=== PATIENT | male | born 1930 | race Caucasian/White ===

== ENCOUNTER 2017-12-04 11:16 | Emergency (ER) | payer BC ==
--- NOTE | 2017-12-04 11:41 | Emergency Department Record ---
History of Present Illness - General Chief complaint: Male Urogenital Problem Stated complaint: UTI Time Seen by Provider: 12/04/17 11:21 Source: Patient, Family Mode of Arrival: Ambulatory Limitations: No limitations - History of Present Illness Initial comments: 87 yo male presents with his son with concerns about urinary tract infection. He has had a suprapubic catheter for over a year. Over the last 3-4 days he has felt a little tired and run down. His urine is stronger in odor and darker. No fevers or chills. No pain. No abdominal pain. No retention. No confusion. He is at his baseline. They state the symptoms are very similar to when his suprapub cath causes and infection. It does get changed on a regular bases with his doctor and visiting physicians. MD Complaint: Dysuria -: Days(s) (4) Radiation: None Severity: Mild Quality: Other (No pain) Consistency: Constant Improves with: None Worsens with: None Indwelling catheter - Related Data Previous Rx's Medication Instructions Recorded Hydrocodone/Acetaminophen [[place] 1 each PO QID #15 tablet 12/09/15 5-325 Tablet] Nitrofurantoin Monohyd/M-Cryst 100 mg PO BID #20 capsule 12/04/17 [Macrobid 100 mg Capsule] Allergies Allergy/AdvReac Type Severity Reaction Status Date / Time meloxicam [From Mobic] AdvReac SHORTNESS Verified 12/04/17 12:25 OF BREATH sulfamethoxazole AdvReac hallucinati Verified 12/04/17 12:25 [From Bactrim] ons trimethoprim [From Bactrim] AdvReac hallucinati Verified 12/04/17 12:25 ons Travel Screening - Travel/Exposure Within Last 30 Days Have you traveled within the last 30 days?: No Review of Systems Constitutional: Reports: Malaise, Weakness. Denies: Chills, Fever Eyes: Denies: Eye discharge, Photophobia ENT: Denies: Congestion, Throat pain Respiratory: Denies: Cough, Dyspnea Cardiovascular: Denies: Chest pain, Palpitations, Syncope Endocrine: Reports: Fatigue. Denies: Polydipsia, Polyuria Gastrointestinal: Denies: Abdominal pain, Constipation, Diarrhea, Hematemesis, Hematochezia, Melena, Nausea, Vomiting Genitourinary: Reports: Other. Denies: Discharge, Dysuria, Frequency, Hematuria , Incontinence, Retention, Urgency Musculoskeletal: Reports: Arthralgia. Denies: Back pain Skin: Denies: Bruising, Change in color, Rash Neurological: Denies: Abnormal gait, Headache, Numbness, Seizure, Tingling, Tremors, Vertigo, Weakness Psychiatric: Denies: Anxiety Hematological/Lymphatic: Denies: Blood Clots, Easy bleeding, Easy bruising, Swollen glands Past Medical History - SOCIAL HISTORY Smoking Status: Never smoker Alcohol Use: None Drug Use: None - RESPIRATORY Hx Respiratory Disorders: No - CARDIOVASCULAR Hx Cardio Disorders: Yes Hx Hypertension: Yes - NEURO Hx Neuro Disorders: No - GI Hx GI Disorders: Yes Hx Reflux: Yes - Hx Genitourinary Disorders: Yes Hx Prostate Problems: Yes Hx UTI: Yes - ENDOCRINE Hx Endocrine Disorders: No - MUSCULOSKELETAL Hx Musculoskeletal Disorders: No - PSYCH Hx Psych Problems: No - HEMATOLOGY/ONCOLOGY Hx Hematology/Oncology Disorders: No Family Medical History Any Significant Family History?: No Physical Exam - General General Appearance: Alert, Oriented x3, Cooperative, No acute distress, Other ( Calm, relaxed, no discomfort or distress. Hard of hearing.) Limitations: No limitations - Head Head exam: Atraumatic, Normal inspection - Eye Eye exam: Normal appearance. negative: Conjunctival injection, Scleral icterus - ENT ENT exam: Normal exam Ear exam: Normal external inspection Nasal Exam: Normal inspection Mouth exam: Normal external inspection - Neck Neck exam: Normal inspection - Respiratory Respiratory exam: Normal lung sounds bilaterally. negative: Respiratory distress - Cardiovascular Cardiovascular Exam: Regular rate, Normal rhythm, Normal heart sounds - GI/Abdominal GI/Abdominal exam: Soft. negative: Tenderness - Rectal Rectal exam: Deferred - exam: Deferred - Back Back exam: Reports: Full ROM. Denies: CVA tenderness (R), CVA tenderness (L) - Neurological Neurological exam: Alert, Oriented X3. negative: Motor sensory deficit - Psychiatric Psychiatric exam: Normal affect, Normal mood - Skin Skin exam: Dry, Intact, Normal color, Warm Course Vital Signs 12/04/17 11:28 Temperature 98.0 F Pulse Rate 84 Respiratory 20 Rate Blood Pressure 132/68 Pulse Ox 97 - Reevaluation(s) Reevaluation #1: The vitals were reviewed. No acute changes. 12/04/17 11:41 12/04/17 12:11 The UA is a suprapubic specimen He is symptomatic He will be treated and culture sent 12/04/17 12:21 No acute changes on the CBC 12/04/17 12:35 No acute changes on the BMP Medical Decision Making - Lab Data Result diagrams: 12/04/17 12:05 12/04/17 12:05 Disposition Disposition: Discharge Clinical Impression: Urinary tract infection Qualifiers: Urinary tract infection type: site unspecified Hematuria presence: without hematuria Qualified Code(s): N39.0 - Urinary tract infection, site not specified Disposition: Home, Self-Care Condition: (1) Good Instructions: Urinary Tract Infection in Men (ED), How to Care for Your Suprapubic Catheter (ED) Additional Instructions: Call your doctors first of the week to follow up the tests in the ER and check the culture of the urine Take the antibiotic as directed Return if you have fever, weakness, pain, catheter malfunction or concern Prescriptions: Nitrofurantoin Monohyd/M-Cryst [Macrobid 100 mg Capsule] 100 mg PO BID #20 capsule Forms: Patient Portal Access Time of Disposition: 12:13 Quality - Quality Measures Quality Measures: N/A - Blood Pressure Screening Does Patient Have Any of the Following: No Blood Pressure Classification: Pre-Hypertensive BP Reading Systolic Measurement: 132 Diastolic Measurement: 68 Screening for High Blood Pressure: < Pre-Hypertensive BP, F/U Documented > [ G8950] Pre-Hypertensive Follow-up Interventions: Referral to alternative/primary care provider.
[2017-12-04 11:43] LABS: URINE APPEARANCE CLOUDY; URINE BILIRUBIN NEGATIVE (NEGATIVE); URINE BLOOD MODERATE (NEGATIVE); URINE COLOR YELLOW; URINE GLUCOSE (UA) NEGATIVE (NEGATIVE); URINE KETONE NEGATIVE (NEGATIVE); URINE LEUKOCYTE ESTERASE LARGE (NEGATIVE); URINE NITRITE NEGATIVE (NEGATIVE)
[2017-12-04 11:55] LABS: URINE BACTERIA 3+; URINE EPITHELIAL CELLS NONE SEEN (FEW); URINE RBC 16 - 25 (NONE SEEN)
[2017-12-04] MEDS ORDERED: NITROFURANTOIN MONO 100 MG CAPSULE PO ONE (12:10)
[2017-12-04 12:14] LABS: BASO % 0.3 % (0-6); EOS % 0.3 % (0-6); GRAN % 72.6 % (47-80); HEMATOCRIT 46.9 % (42.0-52.0); HEMOGLOBIN 15.8 gm/dl (14.0-18.0); LYMPH % 18.5 % (16-45); MEAN CELL VOLUME 89.2 fl (81-97); MEAN CORPUSCULAR HGB CONC 33.7 g/dl (32-36); MEAN PLATELET VOLUME 10.5 fl (7.4-10.4); MONO % 8.3 % (0-9); PLATELET COUNT 214 K/uL (130-400); RED BLOOD COUNT 5.26 M/uL (4.40-5.70); RED CELL DISTRIBUTION WIDTH 12.7 % (11.5-14.5)
[2017-12-04 12:28] LABS: BLOOD UREA NITROGEN 15 mg/dL (8-23)
[2017-12-04 12:29] LABS: CREATININE 1.1 mg/dL (0.7-1.2); EST GLOMERULAR FILTRATION RATE > 60 mL/min
[2017-12-04 12:31] LABS: GLUCOSE,RANDOM 94 mg/dL (74-109)
== END 2017-12-04 12:45 | disposition home or self-care (01) ==
LOC: ER 11:16
DX: N39.0 Urinary tract infection, site not specified (principal); I10 Essential (primary) hypertension
CPT/HCPCS: 80048; 81001; 85025; 99283

== ENCOUNTER 2019-04-19 15:29 | Inpatient (IN) | payer BC ==
--- NOTE | 2019-04-19 17:35 | Emergency Department Record ---
History of Present Illness - General Chief complaint: Male Urogenital Problem Stated complaint: UTI Time Seen by Provider: 04/19/19 17:05 Source: Family (Son at the bedside) Mode of Arrival: Wheelchair Limitations: Altered mental status - History of Present Illness Initial comments: 89 yo male presents to ED for evaluation of increased weakness and confusion for the past several days, son at the bedside reports similar symptoms previously related to UTIs in the past. Patient was diagnosed by his at-home nurse several days ago with a UTI, was prescribed Macrobid but did not start taking the antibiotic until 1-2 days ago. Son denies fever symptoms, vomiting, but report increased weakness, confusion, and is concerned about possible dehydration. Patient does not take anticoagulation medications at his baseline. MD Complaint: Other Onset/Timin -: Days(s) Radiation: None Severity: Moderate Consistency: Constant Improves with: None Worsens with: None Indwelling catheter (supra-pubic catheter) Reports: Denies other symptoms - Related Data Sexually active: No Previous Rx's Medication Instructions Recorded Hydrocodone/Acetaminophen [[place] 1 each PO QID #15 tablet 12/09/15 5-325 Tablet] Nitrofurantoin Monohyd/M-Cryst 100 mg PO BID #20 capsule 12/04/17 [Macrobid 100 mg Capsule] Allergies Allergy/AdvReac Type Severity Reaction Status Date / Time meloxicam [From Mobic] AdvReac SHORTNESS Verified 04/19/19 17:55 OF BREATH sulfamethoxazole AdvReac hallucinati Verified 04/19/19 17:55 [From Bactrim] ons trimethoprim [From Bactrim] AdvReac hallucinati Verified 04/19/19 17:55 ons Review of Systems ROS unobtainable: Due to mental status Constitutional: Reports: Weakness Neurological: Reports: Confusion Past Medical History - SOCIAL HISTORY Smoking Status: Never smoker Drug Use: None - RESPIRATORY Hx Respiratory Disorders: No - CARDIOVASCULAR Hx Cardio Disorders: Yes Hx Hypertension: Yes - NEURO Hx Neuro Disorders: No - GI Hx GI Disorders: Yes Hx Reflux: Yes - Hx Genitourinary Disorders: Yes Hx Prostate Problems: Yes Hx UTI: Yes - ENDOCRINE Hx Endocrine Disorders: No - MUSCULOSKELETAL Hx Musculoskeletal Disorders: No - PSYCH Hx Psych Problems: No - HEMATOLOGY/ONCOLOGY Hx Hematology/Oncology Disorders: No Physical Exam - General General Appearance: Other (Awake, answers questions approproiately but delayed with responses.) Limitations: Other (as above) - Head Head exam: Atraumatic, Normocephalic, Normal inspection Head exam detail: negative: Abrasion, Contusion, Pina's sign, General tenderness, Hematoma, Laceration - Eye Eye exam: Normal appearance. negative: Conjunctival injection, Periorbital swelling, Periorbital tenderness, Scleral icterus - ENT Ear exam: negative: Auricular hematoma, Auricular trauma Nasal Exam: negative: Active bleeding, Discharge, Dried blood, Foreign body Mouth exam: negative: Drooling, Laceration, Muffled voice, Tongue elevation Teeth exam: Dental caries - Neck Neck exam: Normal inspection. negative: Meningismus, Tenderness - Respiratory Respiratory exam: Normal lung sounds bilaterally. negative: Respiratory distress, Rhonchi, Stridor, Wheezes - Cardiovascular Cardiovascular Exam: Regular rate, Normal rhythm, Normal heart sounds - GI/Abdominal GI/Abdominal exam: Soft, Other (Supra-pubic catheter appears in satisfactory position on examination.). negative: Rebound, Rigid, Tenderness - Rectal Rectal exam: Deferred - exam: Deferred - Extremities Extremities exam: Normal inspection. negative: Pedal edema, Tenderness - Back Back exam: Denies: CVA tenderness (R), CVA tenderness (L) - Neurological Neurological exam: Alert, Oriented X3 - Psychiatric Psychiatric exam: Normal affect, Normal mood - Skin Skin exam: Normal color. negative: Abrasion Type of lesion: negative: abrasion Course - Reevaluation(s) Reevaluation #1: 04/19/19 18:17 Laboratory studies were reviewed and appear grossly unremarkable for an acute process except for: UA: RBCs TNTC WBCs 36-50 Epis: 3-6 Bacteria 3+ Rocephin was ordered to infuse Lactic acid appears normal Will admit for further evaluation and treatment. Reevaluation #2: 04/19/19 18:33 Case was discussed with Karen Person NP, will accept admission at this time. Patient's Son-in Law and the patient were updated on the plan of care for admission and IV antibiotics and are in agreement with the plan as discussed. Medical Decision Making - Lab Data Result diagrams: 04/19/19 17:48 04/19/19 17:48 Disposition Disposition: Admit Clinical Impression: Generalized weakness UTI (urinary tract infection) Qualifiers: Urinary tract infection type: catheter-associated UTI Indwelling urinary catheter type: cystostomy catheter Encounter type: initial encounter Qualified Code(s): T83.510A - Infection and inflammatory reaction due to cystostomy catheter, initial encounter Disposition: Still a Patient at [facility] Decision to Admit: Admit from ER Decision to Admit Date: 04/19/19 Decision to Admit Time: 18:19 Condition: (2) Stable Forms: Patient Portal Access Time of Disposition: 18:19 Quality - Quality Measures Quality Measures: N/A - Blood Pressure Screening Does Patient Have Any of the Following: No Blood Pressure Classification: Hypertensive Reading Systolic Measurement: 146 Diastolic Measurement: 72 Screening for High Blood Pressure: < First Hypertensive BP, F/U Documented > [G8950] First Hypertensive Follow-up Interventions: Referral to alternative/primary care provider.
[2019-04-19 17:57] LABS: ABSOLUTE NEUTROPHIL COUNT 8.06; BASO % 0.3 % (0-6); EOS % 0.9 % (0-6); GRAN % 71.1 % (47-80); HEMOGLOBIN 15.1 gm/dl (14.0-18.0); LYMPH % 20.2 % (16-45); MEAN CELL VOLUME 90.9 fl (81-97); MEAN CORPUSCULAR HEMOGLOBIN 30.5 pg (27-33); MEAN CORPUSCULAR HGB CONC 33.6 g/dl (32-36); MEAN PLATELET VOLUME 10.5 fl (7.4-10.4); MONO % 7.5 % (0-9); PLATELET COUNT 222 K/uL (130-400); RED BLOOD COUNT 4.95 M/uL (4.40-5.70); RED CELL DISTRIBUTION WIDTH 12.7 % (11.5-14.5); WHITE BLOOD COUNT W/O DIFF 11.3 K/uL (4.2-12.2)
[2019-04-19 17:59] LABS: URINE APPEARANCE CLOUDY; URINE BILIRUBIN NEGATIVE (NEGATIVE); URINE BLOOD LARGE (NEGATIVE); URINE COLOR BROWN; URINE GLUCOSE (UA) NEGATIVE (NEGATIVE); URINE KETONE NEGATIVE (NEGATIVE); URINE LEUKOCYTE ESTERASE LARGE (NEGATIVE); URINE NITRITE POSITIVE (NEGATIVE); URINE UROBILINOGEN 0.2 E.U./dL (0.20 - 1.00)
[2019-04-19 18:05] LABS: URINE BACTERIA 3+; URINE WBC 36 - 50 (0-2/hpf)
[2019-04-19 18:08] LABS: BLOOD UREA NITROGEN 20 mg/dL (8-23); CREATININE 1.1 mg/dL (0.7-1.2); EST GLOMERULAR FILTRATION RATE > 60 mL/min
[2019-04-19 18:11] LABS: GLUCOSE,RANDOM 107 mg/dL (74-109)
[2019-04-19] MEDS ORDERED: CEFTRIAXONE 1GM/50ML BAG 1 GM/50 ML BAG IVPB ONE (18:12)
[2019-04-19 18:13] LABS: ALB/GLOB RATIO 1.1 (1.1-1.8); ALBUMIN 3.7 g/dL (4.0-5.0); ALT/SGPT 11 U/L (<41); AST/SGOT 18 U/L (10.0-50.0); LACTIC ACID 1.7 mmol/L (0.5-2.2)
[2019-04-19 18:14] LABS: ALKALINE PHOSPHATASE 77 U/L (40-129)
[2019-04-19] MEDS ORDERED: 0.9 % SODIUM CHLORIDE 1000ML 1,000 ML IV ONE (19:25)
[2019-04-19] MEDS ORDERED: FLU VAC QS 2019-20 (INPT, 6MO+) 60MCG/0.5ML IM ONE (19:46)
[2019-04-20] MEDS: PANTOPRAZOLE SODIUM 40 MG TABLET PO SCH (06:23)
[2019-04-20 09:09] LABS: ABSOLUTE NEUTROPHIL COUNT 7.02; BASO % 0.2 % (0-6); GRAN % 76.9 % (47-80); HEMOGLOBIN 14.3 gm/dl (14.0-18.0); LYMPH % 15.4 % (16-45); MEAN CELL VOLUME 91.5 fl (81-97); MEAN CORPUSCULAR HEMOGLOBIN 30.4 pg (27-33); MEAN CORPUSCULAR HGB CONC 33.3 g/dl (32-36); MEAN PLATELET VOLUME 10.3 fl (7.4-10.4); MONO % 6.5 % (0-9); PLATELET COUNT 211 K/uL (130-400); RED CELL DISTRIBUTION WIDTH 12.7 % (11.5-14.5); WHITE BLOOD COUNT W/O DIFF 9.1 K/uL (4.2-12.2)
[2019-04-20] MEDS ORDERED: DOCUSATE SODIUM 100 MG CAPSULE PO PRN (09:19)
[2019-04-20 09:21] LABS: BLOOD UREA NITROGEN 16 mg/dL (8-23); EST GLOMERULAR FILTRATION RATE > 60 mL/min; GLUCOSE,RANDOM 97 mg/dL (74-109)
[2019-04-20] MEDS ORDERED: HYDROCODONE/APAP 5/325MG TABLET PO PRN (09:47)
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
[2019-04-20] MEDS: 0.9 % SODIUM CHLORIDE 1000ML 1,000 ML IV PRN (10:00)
[2019-04-20] MEDS ORDERED: DOCUSATE SODIUM 100 MG CAPSULE PO SCH (10:00)
[2019-04-20] MEDS: ENOXAPARIN 40 MG/0.4 ML SYR SQ SCH (10:42)
[2019-04-20] MEDS: ACETAMINOPHEN 500 MG TABLET PO PRN (10:43)
[2019-04-20] MEDS: HYDROCHLOROTHIAZIDE 25 MG TABLET PO SCH (10:43)
--- NOTE | 2019-04-20 11:26 | Rehab Evaluation ---
Patient Information - Patient Information Diagnosis: UTI, weakness/confusion Ordered Treatment: PT Evaluate and Treat Status: Initial Evaluation Surgery: No History: Detail (Pt was admitted 04/19/19 from ED after presentation with worsening weakness and confusion. Pt's daughter Nazia reports that she thinks he's had UTI for longer than she was aware of it.) Past Medical/Surgical Hx: PAST MEDICAL/SURGICAL HISTORY Past Surgical History prostate arm leg amputation hernia pacemaker suprapubic catheter PMH - Respiratory Hx Respiratory Disorders No PMH - Cardiovascular Hx Cardiovascular Disorders Yes Hx Abnormal EKG Yes Hx Hypertension Yes Comment: pacemaker PMH - Neuro Hx Neurological Disorders No PMH - GI Hx Gastrointestinal Disorders Yes Hx Gastroesophageal Reflux Yes PMH - Hx Genitourinary Disorders Yes Hx Prostate Problems Yes Hx Urinary Tract Infection Yes Comment: recent sx (turp per pt) PMH - Endocrine Hx Endocrine Disorders No PMH - Musculoskeletal Hx Musculoskeletal Disorders No PMH - Psych Hx Psychiatric Problems No PMH - Hematology/Oncology Hx Hematology/Oncology No Disorders Premorbid Status: Detail (Pt was ambulating w/supervision w/four wheeled walker and R LE prosthesis within home environment. He was generally independent with bed mobility, but would sometimes require CGA. He typically dons R LE prosthesis upon arising and keeps it on all day. He was generally independent with transfers and ambulating w/walker, but did require supervision due to unsteadiness. He could get himself to the bathroom and independently managed toileting and showering, but daughter assists with more comprehensive cleaning. He was independent with dressing. He has a home care nurse who comes every three weeks to change suprapubic catheter.) Social History: Detail (Pt lives in a two story home with daughter Nazia and son-in-law. All of his needs can be met on the main floor; there are two steps to enter the home, with no handrails. Family assists to get him in/out of the home. He has a walk-in shower and uses a bedside commode as a shower chair. There is an elevated toilet and grab bar in his bathroom. He has a four wheeled walker that he uses for ambulation within the home; daughter states he may need a new one, as she found this one at a yard sale. They have a wheelchair that pt doesn't typically use in the home, but is used sometimes to take him out of the home.) Precautions: [place], Fall - Time With Patient Total Time Spent With Patient (Min): 35 Treatment Procedures: Detail (PT Evaluation) Subjective Information - Subjective Information Per Patient (Pt was reporting headache but no other pain or discomfort.) Objective Data - Pain Pain Present: Yes Pain Intensity: 5 Pain Scale Used: Numeric (1 - 10) - Mental Status Patient Orientation: Oriented x3 - Visual Perception Appears within normal limits for therapeutic activities - ROM Not within normal limits - Strength/Tone Not within normal limits (Grossly 4/5 strength in proximal LE's, 3/5 in L knee flexion/extension, 3-/5 in R knee flexion/extension, 3/5 L ankle dorsiflexion, plantarflexion.) - Coordination Appears within normal limits for therapeutic activities - Bed Mobility Needs Assist (Pt required minimal assist for coming to sit at edge of bed, with head of bed elevated and siderail down.) - Transfers Needs Assist (Required minimal assist to come to standing from bed to walker and to sit in recliner. VCs for stepping and reaching for chair.) - Balance Balance Sitting: Good Balance Standing: Fair (Pt was somewhat unsteady standing w/front wheeled walker, tended to lose balance backward, but was able to correct once started transferring.) - Sensation Intact - Gait Detail (Pt took few steps to transfer to bedside recliner with minimal assist; required assist to maneuver walker and manage IV and catheter/bag, VCs for foot placement.) Therapy Assessment - Therapy Assessment Detail (Pt exhibits generalized weakness consistent with his medical condition. He is likely to benefit from home physical therapy once stable and discharged home to facilitate safe and independent mobility within his home environment.) Problem List - Problem List Physical Therapy Problem List: Detail (1. Requires assist for bed mobility. 2. Requires assist for transfers. 3. Unsteady gait. 4. Generalized weakness.) Goals - Goals Physical Therapy Goals: 1. Pt will require supervision only for bed mobility and transfers. 2. Pt will ambulate household distances with front wheeled walker w/CGA. 3. Pt will tolerate basic LE exercise program without undue fatigue. Prognosis - Prognosis Good Plan - Plan Physical Therapy Plan: Pt will be seen for PT 1-2x daily M-F for mobility and transfer training, gait/balance training, instruction in LE exercises until discharged or goals met.
[2019-04-20] MEDS: TMP/SMZ 160MG/800MG TAB PO SCH ×2 (14:09→21:23)
[2019-04-20] MEDS: LINEZOLID 600 MG TABLET PO SCH ×2 (14:09→21:23)
--- NOTE | 2019-04-20 16:40 | Physical Therapy Tx Note ---
Physical Therapy Tx Note - Treatment Note Tolerated: Good Total Time Spent With Patient: 45 Physical Therapy Tx Note: Detail (Pt. was A&Ox3, found supine with catheter, IV pole on pt. left side, and BKA prosthesis donned. Bed alarm was on and call light in reach. Resting O2 saturation of 96% on room air. Pt. required mod assist x1 with supine to seated transfer. Pt. required VC for hand placement with sit to stand transfer to front wheeled walker. Pt. ambulated with CGA for 52 feet with front wheeled walker and did not require rest break. Pt. was independent with standing to seated transfer to chair. Pt. was instructed on and performed ankle pumps, SAQ, gluteal sets, and shoulder abduction with pillow against chair for extremity exercises. Pt. had steady O2 saturation of 96% with ambulation. Pt. was left seated upright in chair with call light available, pros thetic donned, walker in reach, chair alarm activated, and nursing was notified of pt.'s status.) Physical Therapy Problem List: Detail (1. Requires assist for bed mobility. 2. Requires assist for transfers. 3. Unsteady gait. 4. Generalized weakness.) Physical Therapy Goals: 1. Pt will require supervision only for bed mobility and transfers. 2. Pt will ambulate household distances with front wheeled walker w/CGA. 3. Pt will tolerate basic LE exercise program without undue fatigue. Prognosis: Good (Pt. had no adverse reactions to tx today and was steady with ambulation using front wheeled walker. Pt. will benefit from continuation of PT services for transfer training and techniques to help pt. safely and independen ly transfer into and out of bed.) Physical Therapy Plan: Pt will be seen for PT 1-2x daily M-F for mobility and transfer training, gait/balance training, instruction in LE exercises until discharged or goals met.
[2019-04-20] MEDS ORDERED: CEFTRIAXONE 1GM/50ML BAG 1 GM/50 ML BAG IVPB SCH (18:00)
[2019-04-21] MEDS: 0.9 % SODIUM CHLORIDE 1000ML 1,000 ML IV PRN ×2 (04:51→22:04)
[2019-04-21] MEDS: PANTOPRAZOLE SODIUM 40 MG TABLET PO SCH (06:24)
[2019-04-21] MEDS: ACETAMINOPHEN 500 MG TABLET PO PRN (06:24)
[2019-04-21 06:54] LABS: ABSOLUTE NEUTROPHIL COUNT 4.49; BASO % 0.3 % (0-6); EOS % 2.7 % (0-6); GRAN % 70.5 % (47-80); HEMATOCRIT 41.1 % (42.0-52.0); HEMOGLOBIN 13.4 gm/dl (14.0-18.0); LYMPH % 17.5 % (16-45); MEAN CELL VOLUME 91.7 fl (81-97); MEAN CORPUSCULAR HEMOGLOBIN 29.9 pg (27-33); MEAN CORPUSCULAR HGB CONC 32.6 g/dl (32-36); MEAN PLATELET VOLUME 10.9 fl (7.4-10.4); PLATELET COUNT 198 K/uL (130-400); RED BLOOD COUNT 4.48 M/uL (4.40-5.70); RED CELL DISTRIBUTION WIDTH 12.8 % (11.5-14.5); WHITE BLOOD COUNT W/O DIFF 6.4 K/uL (4.2-12.2)
[2019-04-21 07:12] LABS: BLOOD UREA NITROGEN 15 mg/dL (8-23); CREATININE 1.1 mg/dL (0.7-1.2); EST GLOMERULAR FILTRATION RATE > 60 mL/min; GLUCOSE,RANDOM 91 mg/dL (74-109)
[2019-04-21] MEDS: ENOXAPARIN 40 MG/0.4 ML SYR SQ SCH (09:31)
[2019-04-21] MEDS: LINEZOLID 600 MG TABLET PO SCH ×2 (09:31→22:01)
[2019-04-21] MEDS: TMP/SMZ 160MG/800MG TAB PO SCH ×2 (09:31→22:01)
[2019-04-21] MEDS: HYDROCHLOROTHIAZIDE 25 MG TABLET PO SCH (09:31)
--- NOTE | 2019-04-21 10:05 | Physician Progress Note ---
Subjective - Date Date of Physician Progress Note: 04/21/19 - Subjective Subjective Comment: Patient states he is starting to feel better and moving towards baseline upon examination this AM. Patient verbalized understanding related to POC. Objective - Vital Signs Vital Signs: Vital Signs - Last 24 Hrs Temp Pulse Resp BP Pulse Ox 04/21/19 08:00 97.9 F 60 16 111/59 95 04/21/19 03:00 97.7 F 63 16 114/58 04/20/19 18:00 97.7 F 76 16 152/74 97 - General General Appearance: Oriented x3 (with bouts of intermittent confusion), No acute distress Limitations: Other (as above) - Head Head exam: Atraumatic, Normocephalic, Normal inspection Head exam detail: negative: Abrasion, Contusion, Pina's sign, General tenderness, Hematoma, Laceration - Eye Eye exam: Normal appearance. negative: Conjunctival injection, Periorbital swelling, Periorbital tenderness, Scleral icterus - Neck Neck exam: Normal inspection, Full ROM - Respiratory Respiratory exam: Normal lung sounds bilaterally - Cardiovascular Cardiovascular Exam: Regular rate, Normal rhythm, Normal heart sounds Peripheral Pulses: 0: Dorsalis Pedis (R), 2+: Radial (R), Radial (L), Dorsalis Pedis (L) - GI/Abdominal GI/Abdominal exam: Soft, Normal bowel sounds, Distended, Hernia (midline abdomen), Other (Supra-pubic catheter appears in satisfactory position on examination.). negative: Tenderness - Rectal Rectal exam: Deferred - exam: Deferred - Extremities Extremities exam: Normal inspection (RLE BKA healed). negative: Pedal edema, Tenderness - Back Back exam: Reports: Normal inspection - Neurological Neurological exam: Alert, Oriented X3 - Psychiatric Psychiatric exam: Normal affect, Normal mood - Skin Skin exam: Normal color Assessment and Plan - Assessment and Plan (1) Generalized weakness Current Visit: Yes Status: Acute Base Code: R53.1 - WEAKNESS Comment: 04/21/19 -Decreased ambulation d/t UTI and confusion -PT recommending home therapy to assist with bed mobility and transfer training. 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 (2) UTI (urinary tract infection) Current Visit: Yes Status: Acute Qualifiers: Urinary tract infection type: catheter-associated UTI Indwelling urinary catheter type: cystostomy catheter Encounter type: initial encounter Qualified Code(s): T83.510A - Infection and inflammatory reaction due to cystostomy catheter, initial encounter; N39.0 - Urinary tract infection, site not specified Base Code: N39.0 - URINARY TRACT INFECTION, SITE NOT SPECIFIED Comment: 04/21/19 -LT Suprapubic catheter in place with minimal drainage at insertion site -Homecare changes catheter Q3Wks -Urine culture done in ER, still pending -Macrobid x1 day at home prior to coming to ER -D/C Rocephin and change to Linezolid and Bactrim to cover previous culture results -Catheter care ordered for nursing to perform -Patient remains afebrile (3) Chronic back pain Current Visit: Yes Status: Acute Qualifiers: Back pain location: thoracic back pain Back pain laterality: midline Qualified Code(s): M54.6 - Pain in thoracic spine; G89.29 - Other chronic pain Base Code: M54.9 - DORSALGIA, UNSPECIFIED; G89.29 - OTHER CHRONIC PAIN Comment: 04/21/19 -Home [place] 5/325mg PO TID PRN -Pain well controlled with PRN medication. Patient able to verbalize need for medication. (4) DVT prophylaxis Current Visit: Yes Status: Acute Base Code: Z29.9 - ENCOUNTER FOR PROPHYLACTIC MEASURES, UNSPECIFIED Comment: 04/21/19 -Lovenox 40mg SQ Daily (5) Full code status Current Visit: Yes Status: Acute Base Code: Z78.9 - OTHER SPECIFIED HEALTH STATUS Comment: 04/21/19 -Daughter Medical POA, states on file at [facility] not sure if we have a copy -Full code status for this admission Results - Labs Result Diagrams: 04/21/19 06:20 04/21/19 06:20 Labs Last 24 Hours: Laboratory Results - last 24 hr 04/21/19 04/21/19 06:20 06:20 WBC 6.4 RBC 4.48 Hgb 13.4 L Hct 41.1 L MCV 91.7 MCH 29.9 MCHC 32.6 RDW 12.8 Plt Count 198 MPV 10.9 H Gran % 70.5 Lymphocytes % 17.5 Monocytes % 9.0 Eosinophils % 2.7 Basophils % 0.3 Absolute Neutrophils 4.49 Sodium 138 Potassium 3.6 Chloride 103 Carbon Dioxide 22.0 Anion Gap 13.0 BUN 15 Creatinine 1.1 Estimated GFR > 60 Random Glucose 91 Calcium 8.6 L DVT/PE Assessment - Risk for VTE Risk for VTE: No Risk Level: High Risk Assessment Date: 04/20/19 Risk Assessment Time: 09:58 VTE Orders Placed or Will Be Placed: Yes - Active Medicaitons Current Medications: Current Medications Acetaminophen (Tylenol 500mg Tab) 500 mg PO Q6H PRN PRN Reason: PAIN - MILD (1-4) Last Admin: 04/21/19 06:24 Dose: 500 mg Documented by: Hydrocodone Bitart/Acetaminophen ([place] 5mg/325mg) 1 each PO Q6H PRN PRN Reason: PAIN - MOD TO SEVERE (5-10) Docusate Sodium (Colace) 100 mg PO BID PRN PRN Reason: CONSTIPATION Last Admin: 04/20/19 10:43 Dose: 100 mg Documented by: Enoxaparin Sodium (Lovenox) 40 mg SQ DAILY [facility] Last Admin: 04/21/19 09:31 Dose: 40 mg Documented by: Hydrochlorothiazide (Hctz 25mg) 25 mg PO DAILY [facility] Last Admin: 04/21/19 09:31 Dose: 25 mg Documented by: Sodium Chloride () 1,000 mls @ 50 mls/hr IV .Q20H PRN PRN Reason: LARGE VOLUME IV Last Admin: 04/21/19 04:51 Dose: 50 mls/hr Documented by: Linezolid (Linezolid) 600 mg PO BID [facility] Last Admin: 04/21/19 09:31 Dose: 600 mg Documented by: Pantoprazole Sodium (Protonix) 40 mg PO DAILYAC [facility] Last Admin: 04/21/19 06:24 Dose: 40 mg Documented by: Trimethoprim/Sulfamethoxazole (Bactrim Ds) 1 each PO BID [facility] Last Admin: 04/21/19 09:31 Dose: 1 each Documented by: DENNY Plan - Labs Result Diagrams: 04/21/19 06:20 04/21/19 06:20
--- NOTE | 2019-04-21 10:17 | Rehab Evaluation ---
Patient Information - Patient Information Diagnosis: UTI, weakness/confusion Ordered Treatment: OT Evaluate and Treat Status: Initial Evaluation Surgery: No History: Detail (Pt was admitted 04/19/19 from ED after presentation with worsening weakness and confusion. Pt's daughter Nazia reports that she thinks he's had UTI for longer than she was aware of it.) Past Medical/Surgical Hx: PAST MEDICAL/SURGICAL HISTORY Past Surgical History prostate arm leg amputation hernia pacemaker suprapubic catheter PMH - Respiratory Hx Respiratory Disorders No PMH - Cardiovascular Hx Cardiovascular Disorders Yes Hx Abnormal EKG Yes Hx Hypertension Yes Comment: pacemaker PMH - Neuro Hx Neurological Disorders No PMH - GI Hx Gastrointestinal Disorders Yes Hx Gastroesophageal Reflux Yes PMH - Hx Genitourinary Disorders Yes Hx Prostate Problems Yes Hx Urinary Tract Infection Yes Comment: recent sx (turp per pt) PMH - Endocrine Hx Endocrine Disorders No PMH - Musculoskeletal Hx Musculoskeletal Disorders No PMH - Psych Hx Psychiatric Problems No PMH - Hematology/Oncology Hx Hematology/Oncology No Disorders Premorbid Status: Detail (Pt was ambulating w/supervision w/four wheeled walker and R LE BKA prosthesis within home environment. He often required assist with bed mobility in the morning. He typically dons R LE prosthesis upon arising and keeps it on all day. He was generally independent with transfers and ambulating w/walker and could get himself to and from the bathroom independently. He was independent with dressing and toileting, however required supervision and occasional assist with showering. He has a home care nurse who comes every three weeks to change suprapubic catheter.) Social History: Detail (Pt lives w/ his daughter Nazia, her , and their 17 y/o grandson. His daughter assists to get him out of bed but is then home alone until noon when his grandson comes home from school. Pt lives in a two story home and all of his needs can be met on the main floor; there are two steps to enter the home, with no handrails. Family assists to get him in/out of the home. He has a walk-in shower and uses a bedside commode as a shower chair, there are grab bars and a hand-held shower. There is an elevated toilet and grab bar in his bathroom. He has a four wheeled walker that he uses for ambulation within the home; daughter states he may need a new one, as she found this one at a yard sale. They have a wheelchair that pt doesn't typically use in the home, but is used sometimes to take him out of the home.) Precautions: [place], Fall - Time With Patient Total Time Spent With Patient (Min): 45 (1 eval, 1 self-care) Treatment Procedures: Detail (ot eval: low complexity) Subjective Information - Subjective Information Per Patient (Ok to see per RN Nazia. Pt agreeable to OT eval, however initially resistant to answer PLOF questions. States, "That was a whole day's work" after session d/t fatigue.) Objective Data - Pain Pain Present: No - Mental Status Patient Orientation: Oriented x3 - Visual Perception Appears within normal limits for therapeutic activities - ROM Within normal limits (B UEs) - Strength/Tone Within normal limits (B UEs 4+/5 grossly, 4/5 bilateral radio journalist strength) - Coordination Appears within normal limits for therapeutic activities - Bed Mobility Independent (MOD assist supine to EOB from elevated HOB w/ heavy hand-held assist and use of drawsheet) - Transfers Independent (Sit to stand from elevated EOB MOD assist, EOB to BSC over toilet w/ FWW w/ MIN assist, unsteady and requiring verbal cues for problem solving - hand placement on walker/GB, turning to not sit on IV, being in front of toilet before sitting. MIN sit-stand from BSC and MIN for fxl mobility from commode to bedside chair.) - Gait Detail (See transfers) - ADL's/IADL's Detail (Pt dons R LE prosthetic indep unsupported at EOB. Pt requires MAX assist for toileting, including assist for standing pant mgmt and wiping w/ Pt bilateral support on walker for support/balance. MIN assist for gown change and light cueing for sequencing/problem solving. Pt requires bilateral support on walker and unable to wash hands standing at sink - hand manager of employee relations in seated.) Therapy Assessment - Therapy Assessment Detail (Pt demos decreased functional endurance and decreased safety awareness. Would benefit from PETRA if agreeable/pending insurance approval to decrease risk for falls and further injury, increase safety awareness, and decrease caregiver burden. If home DC, Pt will benefit from visiting nurses and home OT and will likely need increased assistance grossly.) Patient Education - Patient Education Teaching Topic: Other (TF technique; safety w/ FWW use during ADLs; safety awareness; benefits of PETRA, home OT) Response: Reinforcement Needed, Verbalize Understanding Teaching Method: Discussion, Demonstration Teaching Recipient: Patient Barriers To Learning: Cognitive/Written (Pt demos slight cognitive deficits throughout eval in memory, processing, problem solving, comprehension, etc.) Problem List - Problem List Physical Therapy Problem List: Detail (1. Requires assist for bed mobility. 2. Requires assist for transfers. 3. Unsteady gait. 4. Generalized weakness.) Occupational Therapy Problem List: Detail (1. Decreased functional endurance 2. Decreased independence w/ toileting 3. Decreased independence and balance safety w/ standing pant mgmt 4. Decreased safety awareness and independence w/ functional transfers) Goals - Goals Physical Therapy Goals: 1. Pt will require supervision only for bed mobility and transfers. 2. Pt will ambulate household distances with front wheeled walker w/CGA. 3. Pt will tolerate basic LE exercise program without undue fatigue. Occupational Therapy Goals: 1. Pt will demo increased endurance for functional tasks, including standing sink-side hand washing 2. Pt will demo indep. w/ toileting 3. Pt will demo safety and indep. with lower body dressing, including standing pant mgmt 4. Pt will demo good safety awareness and MOD I w/ FWW for functional TFs 5. Pt will demo indep. w/ UE HEP for upper body compensation during fxl TFs Prognosis - Prognosis Good Plan - Plan Physical Therapy Plan: Pt will be seen for PT 1-2x daily M-F for mobility and transfer training, gait/balance training, instruction in LE exercises until discharged or goals met. Occupational Therapy Plan: Pt will be seen 1-3x/wk Mon-Fri by skilled OT to address functional goals.
--- NOTE | 2019-04-21 14:02 | Physical Therapy Tx Note ---
Physical Therapy Tx Note - Treatment Note Tolerated: Good Total Time Spent With Patient: 25 Physical Therapy Tx Note: Detail (The patient was up in chair brushing his teeth when PT arrived. The patient required minimal PA of 1 with sit to stand from recliner. The patient ambulated 62 feet x 1 with front wheeled walker with one brief standing rest period. The patient was independent with stand to sit transfer, reaching back for chair. The patient completed the following LE exercises seated: gluteal sets, hip adductor squeezes, resisted hip abduction, L resisted LAQ and resisted hamstring curls x 5-10 reps. The patient was fatigued after exercising. The patient was left in the recliner with call light within reach.) Physical Therapy Problem List: Detail (1. Requires assist for bed mobility. 2. Requires assist for transfers. 3. Unsteady gait. 4. Generalized weakness.) Physical Therapy Goals: 1. Pt will require supervision only for bed mobility and transfers. 2. Pt will ambulate household distances with front wheeled walker w/CGA. 3. Pt will tolerate basic LE exercise program without undue fatigue. Physical Therapy Plan: Pt will be seen for PT 1-2x daily M-F for mobility and transfer training, gait/balance training, instruction in LE exercises until discharged or goals met.
--- NOTE | 2019-04-21 16:25 | RADIOLOGY REPORT ---
EXAMINATION: Single View Chest EXAM DATE: 04/21/2019 4:17 PM TECHNIQUE: Single view chest INDICATION: rehab placement COMPARISON: None. ENCOUNTER: Not applicable FINDINGS: Cardiomediastinal structures unremarkable. Left pacemaker unit and leads project over the base of the heart. No pulmonary consolidation or infiltration. No pneumothorax or pleural effusion. Retrocardiac hiatal hernia. IMPRESSION: 1. No acute abnormality 2. Retrocardiac hiatal hernia Dictated by: Luigi Lechuga MD on 04/21/2019 4:22 PM. .
[2019-04-22 05:52] LABS: ABSOLUTE NEUTROPHIL COUNT 4.78; BASO % 0.4 % (0-6); EOS % 3.1 % (0-6); GRAN % 70.8 % (47-80); HEMATOCRIT 38.7 % (42.0-52.0); HEMOGLOBIN 12.8 gm/dl (14.0-18.0); LYMPH % 15.9 % (16-45); MEAN CELL VOLUME 90.8 fl (81-97); MEAN CORPUSCULAR HGB CONC 33.1 g/dl (32-36); MEAN PLATELET VOLUME 10.4 fl (7.4-10.4); MONO % 9.8 % (0-9); PLATELET COUNT 196 K/uL (130-400); RED BLOOD COUNT 4.26 M/uL (4.40-5.70); RED CELL DISTRIBUTION WIDTH 12.7 % (11.5-14.5); WHITE BLOOD COUNT W/O DIFF 6.8 K/uL (4.2-12.2)
[2019-04-22 06:08] LABS: BLOOD UREA NITROGEN 13 mg/dL (8-23); EST GLOMERULAR FILTRATION RATE > 60 mL/min; GLUCOSE,RANDOM 90 mg/dL (74-109)
[2019-04-22] MEDS: ACETAMINOPHEN 500 MG TABLET PO PRN (06:38)
[2019-04-22] MEDS: PANTOPRAZOLE SODIUM 40 MG TABLET PO SCH (06:39)
[2019-04-22] MEDS: HYDROCHLOROTHIAZIDE 25 MG TABLET PO SCH (09:02)
[2019-04-22] MEDS: ENOXAPARIN 40 MG/0.4 ML SYR SQ SCH (09:02)
[2019-04-22] MEDS: TMP/SMZ 160MG/800MG TAB PO SCH ×2 (09:02→21:24)
[2019-04-22] MEDS: LINEZOLID 600 MG TABLET PO SCH ×2 (09:02→21:24)
[2019-04-22] MEDS: 0.9 % SODIUM CHLORIDE 1000ML 1,000 ML IV PRN (13:12)
--- NOTE | 2019-04-22 16:17 | Physician Progress Note ---
Subjective - Date Date of Physician Progress Note: 04/22/19 - Subjective Subjective Comment: No concerns from nursing overnight. Continued weakness noted. Afebrile, no change in CBC or CMP. Objective - Vital Signs Vital Signs: Vital Signs - Last 24 Hrs Temp Pulse Resp BP Pulse Ox 04/22/19 09:00 16 04/22/19 08:00 98.2 F 60 16 104/52 94 L 04/22/19 01:00 97.7 F 63 18 122/59 95 04/21/19 21:00 63 18 04/21/19 17:00 97.9 F 72 16 112/53 97 - General General Appearance: Oriented x3 (with bouts of intermittent confusion), No acute distress Limitations: Other (as above) - Head Head exam: Atraumatic, Normocephalic, Normal inspection Head exam detail: negative: Abrasion, Contusion, Pina's sign, General tende rness, Hematoma, Laceration - Eye Eye exam: Normal appearance. negative: Conjunctival injection, Periorbital swelling, Periorbital tenderness, Scleral icterus - ENT ENT exam: Mucous membranes moist Ear exam: negative: Auricular hematoma, Auricular trauma Nasal Exam: negative: Active bleeding, Discharge, Dried blood, Foreign body Mouth exam: negative: Drooling, Laceration, Muffled voice, Tongue elevation Teeth exam: Dental caries - Neck Neck exam: Normal inspection, Full ROM - Respiratory Respiratory exam: Normal lung sounds bilaterally - Cardiovascular Cardiovascular Exam: Regular rate, Normal rhythm, Normal heart sounds Peripheral Pulses: 0: Dorsalis Pedis (R), 2+: Radial (R), Radial (L), Dorsalis Pedis (L) - GI/Abdominal GI/Abdominal exam: Soft, Normal bowel sounds, Distended, Hernia (midline abdomen), Other (Supra-pubic catheter appears in satisfactory position on examination.). negative: Tenderness - Rectal Rectal exam: Deferred - exam: Deferred - Extremities Extremities exam: Normal inspection (RLE BKA healed). 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 -Pending placement at this time (2) UTI (urinary tract infection) Current Visit: Yes Status: Acute Qualifiers: Urinary tract infection type: catheter-associated UTI Indwelling urinary catheter type: cystostomy catheter Encounter type: initial encounter Qualified Code(s): T83.510A - Infection and inflammatory reaction due to cystostomy catheter, initial encounter; N39.0 - Urinary tract infection, site not specified Base Code: N39.0 - URINARY TRACT INFECTION, SITE NOT SPECIFIED Comment: 04/22/19 -Long-term Suprapubic catheter in place with minimal drainage at insertion site -Homecare changes catheter Q3Wks -Urine culture done in ER, still pending -Macrobid x1 day at home prior to coming to ER -D/C Rocephin and change to Linezolid and Bactrim based on previous culture results -Catheter care ordered for nursing to perform -Patient remains afebrile, no change in WBC (3) Chronic back pain Current Visit: Yes Status: Acute Qualifiers: Back pain location: thoracic back pain Back pain laterality: midline Qualified Code(s): M54.6 - Pain in thoracic spine; G89.29 - Other chronic pain Base Code: M54.9 - DORSALGIA, UNSPECIFIED; G89.29 - OTHER CHRONIC PAIN Comm ent: 04/22/19 -Home [place] 5/325mg PO TID PRN -Pain well controlled with PRN medication. Patient able to verbalize need for medication. (4) DVT prophylaxis Current Visit: Yes Status: Acute Base Code: Z29.9 - ENCOUNTER FOR PROPHYLACTIC MEASURES, UNSPECIFIED Comment: 04/22/19 -Lovenox 40mg SQ Daily (5) Full code status Current Visit: Yes Status: Acute Base Code: Z78.9 - OTHER SPECIFIED HEALTH STATUS Comment: 04/22/19 -Daughter Medical POA, states on file at [facility] not sure if we have a copy -Full code status for this admission Results - Labs Result Diagrams: 04/22/19 05:38 04/22/19 05:38 Labs Last 24 Hours: Laboratory Results - last 24 hr 04/22/19 04/22/19 05:38 05:38 WBC 6.8 RBC 4.26 L Hgb 12.8 L Hct 38.7 L MCV 90.8 MCH 30.0 MCHC 33.1 RDW 12.7 Plt Count 196 MPV 10.4 Gran % 70.8 Lymphocytes % 15.9 L Monocytes % 9.8 H Eosinophils % 3.1 Basophils % 0.4 Absolute Neutrophils 4.78 Sodium 136 Potassium 3.4 Chloride 103 Carbon Dioxide 21.0 L Anion Gap 12.0 BUN 13 Creatinine 1.0 Estimated GFR > 60 Random Glucose 90 Calcium 8.5 L DVT/PE Assessment - Risk for VTE Risk for VTE: No Risk Level: High Risk Assessment Date: 04/20/19 Risk Assessment Time: 09:58 VTE Orders Placed or Will Be Placed: Yes - Active Medicaitons Current Medications: Current Medications Acetaminophen (Tylenol 500mg Tab) 500 mg PO Q6H PRN PRN Reason: PAIN - MILD (1-4) Last Admin: 04/22/19 06:38 Dose: 500 mg Documented by: Hydrocodone Bitart/Acetaminophen ([place] 5mg/325mg) 1 each PO Q6H PRN PRN Reason: PAIN - MOD TO SEVERE (5-10) Docusate Sodium (Colace) 100 mg PO BID PRN PRN Reason: CONSTIPATION Last Admin: 04/20/19 10:43 Dose: 100 mg Documented by: Enoxaparin Sodium (Lovenox) 40 mg SQ DAILY [facility] Last Admin: 04/22/19 09:02 Dose: 40 mg Documented by: Hydrochlorothiazide (Hctz 25mg) 25 mg PO DAILY [facility] Last Admin: 04/22/19 09:02 Dose: 25 mg Documented by: Sodium Chloride () 1,000 mls @ 75 mls/hr IV .[id number] PRN PRN Reason: LARGE VOLUME IV Last Admin: 04/22/19 13:12 Dose: 75 mls/hr Documented by: Linezolid (Linezolid) 600 mg PO BID [facility] Last Admin: 04/22/19 09:02 Dose: 600 mg Documented by: Pantoprazole Sodium (Protonix) 40 mg PO DAILYAC [facility] Last Admin: 04/22/19 06:39 Dose: 40 mg Documented by: Trimethoprim/Sulfamethoxazole (Bactrim Ds) 1 each PO BID [facility] Last Admin: 04/22/19 09:02 Dose: 1 each Documented by: AMI Plan - Labs Result Diagrams: 04/22/19 05:38 04/22/19 05:38
[2019-04-23] MEDS: 0.9 % SODIUM CHLORIDE 1000ML 1,000 ML IV PRN (01:52)
[2019-04-23] MEDS: PANTOPRAZOLE SODIUM 40 MG TABLET PO SCH (08:02)
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
[2019-04-23] MEDS: TMP/SMZ 160MG/800MG TAB PO SCH (10:04)
[2019-04-23] MEDS: HYDROCHLOROTHIAZIDE 25 MG TABLET PO SCH (10:04)
[2019-04-23] MEDS: ENOXAPARIN 40 MG/0.4 ML SYR SQ SCH (10:04)
[2019-04-23] MEDS: LINEZOLID 600 MG TABLET PO SCH (10:04)
== END 2019-04-23 13:08 | DRG 700 ==
LOC: ER 15:29 → MEDSURG 19:19 → OBSVTOIN 19:19
PROVIDERS: ADMIT Internal Medicine; ATTEND Internal Medicine
DX: T83.510A Infection and inflammatory reaction due to cystostomy catheter, initial encounter (principal); R53.1 Weakness; I10 Essential (primary) hypertension; M54.6 Pain in thoracic spine; Z95.0 Presence of cardiac pacemaker; M54.9 Dorsalgia, unspecified; G89.29 Other chronic pain; K21.9 Gastro-esophageal reflux disease without esophagitis; Z89.511 Acquired absence of right leg below knee
CPT/HCPCS: 71045; 80048; 80053; 81001; 82550; 83605; 83880; 85025; 90686; 96365; 99223; 99233; 99239; 99285; J0696; J1650